=== PATIENT | female | born 1965 | race Hispanic/Latino ===

== ENCOUNTER 2019-03-04 23:11 | Emergency (ER) | payer MEDICARE, OTHER ==
[2019-03-05 00:24] LABS: Bilirubin,Urine NEG (Negative); Blood,Urine NEG (Negative); Color,Urine Straw (Yellow); Mucus,Urine FEW /HPF; Protein,Urine <15 mg/dL mg/dL (Negative); Urobilinogen,Urine < 2.0 mg/dL (<2.0)
--- NOTE | 2019-03-05 02:39 | Emergency Department Report ---
ED Female HPI - General Chief complaint: Back Pain/Injury Stated complaint: BACK PAIN Time Seen by Provider: 03/05/19 02:17 Source: patient, EMS Mode of arrival: Ambulatory Limitations: No Limitations - History of Present Illness Initial comments: Patient is a 53-year-old female who presents the emergency room with complaints of lower back pain that began a few days ago. She has associated urinary frequency and dysuria. She does not report any abdominal pain, diarrhea, fever, vaginal discharge, or any other complaints. She reports she has allergies to azithromycin, doxycycline, and sulfa. - Related Data Previous Rx's Medication Instructions Recorded Last Taken Type Nitrofurantoin [place]/M-Cryst 100 mg PO BID 5 Days #10 capsule 03/05/19 Unknown Rx [Macrobid CAP] Phenazopyridine [Pyridium] 100 mg PO TID PRN #14 tab 03/05/19 Unknown Rx Allergies Allergy/AdvReac Type Severity Reaction Status Date / Time azithromycin [From Zithromax] Allergy Hives Verified 03/04/19 23:34 doxycycline [From Vibramycin] Allergy Hives Verified 03/04/19 23:34 peanut Allergy Hives Verified 03/04/19 23:35 Sulfa (Sulfonamide Allergy Hives Verified 03/04/19 23:33 Antibiotics) ED Review of Systems ROS: Stated complaint: BACK PAIN Other details as noted in HPI Comment: All other systems reviewed and negative ED Past Medical Hx - Past Medical History Previous Medical History?: Yes Hx Hypertension: Yes Hx of Cancer: Yes (Bilateral Breast) Hx Psychiatric Treatment: Yes (Bipolar stays at [facility]) - Surgical History Past Surgical History?: Yes Hx Cholecystectomy: Yes Additional Surgical History: L4-L5 Laminectomy - Social History Smoking Status: Never Smoker Substance Use Type: None - Medications Home Medications: Home Medications Medication Instructions Recorded Confirmed Last Taken Type Nitrofurantoin [place]/M-Cryst 100 mg PO BID 5 Days #10 capsule 03/05/19 Unknown Rx [Macrobid CAP] Phenazopyridine [Pyridium] 100 mg PO TID PRN #14 tab 03/05/19 Unknown Rx ED Physical Exam - General Limitations: No Limitations General appearance: alert, in no apparent distress - Head Head exam: Present: atraumatic, normocephalic - Eye Eye exam: Present: normal appearance, PERRL - ENT ENT exam: Present: mucous membranes moist - Respiratory Respiratory exam: Present: normal lung sounds bilaterally. Absent: respiratory distress, wheezes, rales, rhonchi, stridor, chest wall tenderness, accessory muscle use, decreased breath sounds, prolonged expiratory - Cardiovascular Cardiovascular Exam: Present: regular rate, normal rhythm, normal heart sounds. Absent: systolic murmur, diastolic murmur, rubs, gallop - GI/Abdominal GI/Abdominal exam: Present: soft, normal bowel sounds. Absent: distended, tenderness, guarding, rebound, rigid - Back Exam Back exam: Absent: CVA tenderness (R), CVA tenderness (L) - Neurological Exam Neurological exam: Present: alert, oriented X3 - Skin Skin exam: Present: warm, dry, intact ED Course Vital Signs 03/04/19 03/05/19 23:51 02:58 Temperature 98.4 F 99.2 F Pulse Rate 100 H 94 H Respiratory 20 18 Rate Blood Pressure 136/87 Blood Pressure 127/83 [Right] O2 Sat by Pulse 97 97 Oximetry ED Medical Decision Making - Lab Data Lab Results 03/04/19 Range/Units 23:50 Urine Color Straw (Yellow) Urine Turbidity Clear (Clear) Urine pH 7.0 (5.0-7.0) Ur Specific [place] 1.004 (1.003-1.030) Urine Protein <15 mg/dl (Negative) mg/dL Urine Glucose (UA) Neg (Negative) mg/dL Urine Ketones Neg (Negative) mg/dL Urine Blood Neg (Negative) Urine Nitrite Neg (Negative) Urine Bilirubin Neg (Negative) Urine Urobilinogen < 2.0 (<2.0) mg/dL Ur Leukocyte Esterase Sm (Negative) Urine WBC (Auto) 7.0 H (0.0-6.0) /HPF Urine RBC (Auto) 1.0 (0.0-6.0) /HPF U Epithel Cells (Auto) < 1.0 (0-13.0) /HPF Urine Mucus Few /HPF Vital Signs 03/04/19 03/05/19 23:51 02:58 Temperature 98.4 F 99.2 F Pulse Rate 100 H 94 H Respiratory 20 18 Rate Blood Pressure 136/87 Blood Pressure 127/83 [Right] O2 Sat by Pulse 97 97 Oximetry - Medical Decision Making Patient is a 53-year-old female who presents the emergency room with complaints of lower back pain that began a few days ago. She has associated urinary frequency and dysuria. She does not report any abdominal pain, diarrhea, fever, vaginal discharge, or any other complaints. She reports she has allergies to azithromycin, doxycycline, and sulfa. on exam: no abd tenderness, no CVAT. VSS. UA with small amount of WBCs and small amount of leukocyte esterase. pt given macrobid and pyridium for a UTI. advised to please take medication as prescribed. Drink plenty of water. Follow up with primary care doctor in the next 2-3 days. Return to the emergency room for any new or worsening symptoms. Critical care attestation.: If time is entered above; I have spent that time in minutes in the direct care of this critically ill patient, excluding procedure time. ED Disposition Clinical Impression: UTI (urinary tract infection) Qualifiers: Urinary tract infection type: acute cystitis Hematuria presence: without hematuria Qualified Code(s): N30.00 - Acute cystitis without hematuria Back pain Qualifiers: Back pain location: low back pain Chronicity: acute Back pain laterality: unspecified Sciatica presence: unspecified whether sciatica present Qualified Code(s): M54.5 - Low back pain Disposition: - TO HOME OR SELFCARE Is pt being admited?: No Does the pt Need Aspirin: No Condition: Stable Instructions: Urinary Tract Infection in Women (ED) Additional Instructions: Please take medication as prescribed. Drink plenty of water. Follow up with primary care doctor in the next 2-3 days. Return to the emergency room for any new or worsening symptoms. Prescriptions: Nitrofurantoin [place]/M-Cryst [Macrobid CAP] 100 mg PO BID 5 Days #10 capsule Phenazopyridine [Pyridium] 100 mg PO TID PRN #14 tab PRN Reason: pain Referrals: [facility] [Outside] - 2-3 Days [facility] [Provider Group] - 2-3 Days [facility] [Outside] - 2-3 Days Time of Disposition: 02:37 Print Language: KAZAKH
[2019-03-05 02:59] VITALS: BP 127/83
== END 2019-03-05 02:59 | disposition home or self-care (01) ==
LOC: ED 23:11
DX: N30.00 Acute cystitis without hematuria (principal); I10 Essential (primary) hypertension; F31.9 Bipolar disorder, unspecified; Z90.49 Acquired absence of other specified parts of digestive tract; Z88.2 Allergy status to sulfonamides; Z91.010 Allergy to peanuts; Z88.1 Allergy status to other antibiotic agents
CPT/HCPCS: 81001; 87086

== ENCOUNTER 2019-03-05 17:46 | Emergency (ER) | payer MEDICARE ==
--- NOTE | 2019-03-05 17:51 | Emergency Department Report ---
ED Psych HPI - General Stated Complaint: BIPOLAR EPISODE Time Seen by Provider: 03/05/19 17:48 Source: patient, EMS Mode of arrival: Ambulatory Limitations: No Limitations - History of Present Illness Initial Comments: Chief complaint:" I'm having psych issues." Mrs. Domínguez is a 53-year-old female with history of bipolar affective disorder who presents to the ER with low blood sugar and "manic attack". She was seen last night for UTI symptoms. Today she called 911 from [employer]. She wanted assistance for her aura and low blood sugar. She was given juice per EMS. Her blood sugar was normal according to the paramedics. She denies homicidal or suicidal ideation. She appears anxious and hyperverbal. MD Complaint: other (feels anxious, feels manic) -: Gradual, days(s) (several days) Associated Psychiatric Symptoms: racing thoughts History of same: Yes Quality: constant Improves With: none Worsens With: none Context: significant life stressor Associated Symptoms: denies other symptoms Treatments Prior to Arrival: none - Related Data Previous Rx's Medication Instructions Recorded Last Taken Type Nitrofurantoin [place]/M-Cryst 100 mg PO BID 5 Days #10 capsule 03/05/19 Unknown Rx [Macrobid CAP] Phenazopyridine [Pyridium] 100 mg PO TID PRN #14 tab 03/05/19 Unknown Rx Allergies Allergy/AdvReac Type Severity Reaction Status Date / Time azithromycin [From Zithromax] Allergy Hives Verified 03/04/19 23:34 doxycycline [From Vibramycin] Allergy Hives Verified 03/04/19 23:34 peanut Allergy Hives Verified 03/04/19 23:35 Sulfa (Sulfonamide Allergy Hives Verified 03/04/19 23:33 Antibiotics) ED Review of Systems ROS: Stated complaint: BIPOLAR EPISODE Other details as noted in HPI Comment: All other systems reviewed and negative Constitutional: denies: fever, malaise Respiratory: denies: cough Cardiovascular: denies: as per HPI Psychiatric: anxiety. denies: auditory hallucinations, visual hallucinations, homicidal thoughts, suicidal thoughts ED Past Medical Hx - Past Medical History Previous Medical History?: Yes Hx Hypertension: Yes Hx Psychiatric Treatment: Yes (Bipolar stays at [facility]) - Surgical History Hx Cholecystectomy: Yes Additional Surgical History: L4-L5 Laminectomy - Social History Smoking Status: Never Smoker Substance Use Type: None - Medications Home Medications: Home Medications Medication Instructions Recorded Confirmed Last Taken Type Nitrofurantoin [place]/M-Cryst 100 mg PO BID 5 Days #10 capsule 03/05/19 03/05/19 Unknown Rx [Macrobid CAP] Phenazopyridine [Pyridium] 100 mg PO TID PRN #14 tab 03/05/19 03/05/19 Unknown Rx ED Physical Exam - General General appearance: alert, in no apparent distress - Head Head exam: Present: atraumatic, normocephalic - Eye Eye exam: Present: normal appearance - ENT ENT exam: Present: mucous membranes moist - Neck Neck exam: Present: normal inspection, full ROM - Respiratory Respiratory exam: Present: normal lung sounds bilaterally. Absent: respiratory distress, wheezes, rales, rhonchi - Cardiovascular Cardiovascular Exam: Present: regular rate, normal rhythm, normal heart sounds. Absent: systolic murmur, diastolic murmur, rubs, gallop - GI/Abdominal GI/Abdominal exam: Present: soft, normal bowel sounds. Absent: distended, tenderness, guarding, rebound - Extremities Exam Extremities exam: Present: normal inspection - Back Exam Back exam: Present: normal inspection - Neurological Exam Neurological exam: Present: alert, oriented X3 - Psychiatric Psychiatric exam: Present: flat affect. Absent: suicidal ideation - Skin Skin exam: Present: warm, dry, intact, normal color. Absent: rash ED Course Vital Signs 03/05/19 03/05/19 03/05/19 18:28 18:41 18:50 Temperature 98.4 F 98.9 F Pulse Rate 104 H 104 H Respiratory 18 18 18 Rate Blood Pressure 129/78 Blood Pressure 129/78 [Left] O2 Sat by Pulse 97 97 Oximetry ED Medical Decision Making - Lab Data Result diagrams: 03/05/19 18:00 03/05/19 18:00 - Medical Decision Making Mrs. Domínguez presents to the ER for psychiatric evaluation. She is medically clear for psychiatric care. No indication for involuntary hold or inpatient transfer at this time. Awaiting recommendation by psychiatric team. Critical care attestation.: If time is entered above; I have spent that time in minutes in the direct care of this critically ill patient, excluding procedure time. ED Disposition Clinical Impression: Aura, Bipolar disorder Disposition: DC-01 TO HOME OR SELFCARE Is pt being admited?: No Does the pt Need Aspirin: No Condition: Stable Instructions: Bipolar Disorder (ED)
[2019-03-05 18:24] LABS: Basophils % (Auto) 0.4 % (0.0-1.8); Eosinophils % (Auto) 0.4 % (0.0-4.3); Hematocrit 35.1 % (30.3-42.9); Lymphocytes # (Auto) 1.6 K/mm3 (1.2-5.4); Mean Corpuscular HGB Conc 34 % (30-34); Mean Corpuscular Volume 89 fl (79-97); Monocytes # (Auto) 0.8 K/mm3 (0.0-0.8); Monocytes % (Auto) 7.1 % (0.0-7.3); Platelet Count 529 K/mm3 (140-440); Red Blood Count 3.94 M/mm3 (3.65-5.03); Red Cell Distribution Width 13.6 % (13.2-15.2)
[2019-03-05 18:43] LABS: Alanine Aminotransferase 72 units/L (7-56); Albumin 4.2 g/dL (3.9-5); BUN/Creatinine Ratio 13; Blood Urea Nitrogen 9 mg/dL (7-17); Calcium 9.6 mg/dL (8.4-10.2); Hemolysis Index 4
[2019-03-05 18:48] LABS: Bacteria,Urine 2+ /HPF (Negative); Bilirubin,Urine NEG (Negative); Blood,Urine MOD (Negative); Color,Urine Yellow (Yellow); Mucus,Urine FEW /HPF; Protein,Urine <15 mg/dL mg/dL (Negative); Urobilinogen,Urine < 2.0 mg/dL (<2.0); WBC,Urine > 182.0 /HPF (0.0-6.0)
[2019-03-05] MEDS ORDERED: ATIVAN PO ONE (19:04)
[2019-03-05] MEDS ORDERED: ATIVAN ONE (19:09)
[2019-03-05 19:41] LABS: Amphetamine Screen,Urine PRESUMPTIVE NEGATIVE; Benzodiazepines Screen,Urine PRESUMPTIVE NEGATIVE; Cannabinoid Screen,Urine PRESUMPTIVE NEGATIVE; Cocaine Screen,Urine PRESUMPTIVE NEGATIVE; Methadone Screen,Urine PRESUMPTIVE NEGATIVE; Opiate Screen,Urine PRESUMPTIVE NEGATIVE
[2019-03-05] MEDS ORDERED: GEODON IM ONE (19:44)
[2019-03-06] MEDS ORDERED: TYLENOL PO ONE (10:31)
[2019-03-06] MEDS ORDERED: ATIVAN PO ONE (10:43)
--- NOTE | 2019-03-06 12:19 | Consultation ---
History of Present Illness - Reason for Consult Consult date: 03/06/19 Reason for consult: Mental Health Evaluation Requesting physician: JENNIFER MACKEY - Chief Complaint Chief complaint: "I need my medications' Medications and Allergies Allergies Allergy/AdvReac Type Severity Reaction Status Date / Time azithromycin [From Zithromax] Allergy Hives Verified 03/04/19 23:34 doxycycline [From Vibramycin] Allergy Hives Verified 03/04/19 23:34 peanut Allergy Hives Verified 03/04/19 23:35 Sulfa (Sulfonamide Allergy Hives Verified 03/04/19 23:33 Antibiotics) Home Medications Medication Instructions Recorded Confirmed Last Taken Type Nitrofurantoin [place]/M-Cryst 100 mg PO BID 5 Days #10 capsule 03/05/19 03/05/19 Unknown Rx [Macrobid CAP] Phenazopyridine [Pyridium] 100 mg PO TID PRN #14 tab 03/05/19 03/05/19 Unknown Rx Mental Status Exam - Vital signs Last Vital Signs Temp 98.3 F 03/06/19 08:02 Pulse 93 H 03/06/19 08:02 Resp 20 03/06/19 08:02 BP 123/77 03/06/19 08:02 Pulse Ox 98 03/06/19 08:02 Results Result Diagrams: 03/05/19 18:00 03/05/19 18:00 Abnormal lab results 03/05/19 03/05/19 03/05/19 Range/Units 18:00 18:00 18:00 WBC 11.8 H (4.5-11.0) K/mm3 Plt Count 529 H (140-440) K/mm3 Seg Neutrophils % 78.1 H (40.0-70.0) % Seg Neutrophils # 9.2 H (1.8-7.7) K/mm3 Sodium 132 L (137-145) mmol/L Chloride 94.6 L (98-107) mmol/L Carbon Dioxide 21 L (22-30) mmol/L Glucose 143 H (65-100) mg/dL POC Glucose (70-105) AST 55 H (5-40) units/L ALT 72 H (7-56) units/L Alkaline Phosphatase 301 H (35-129) units/L Urine WBC (Auto) (0.0-6.0) /HPF U Epithel Cells (Auto) (0-13.0) /HPF Salicylates < 0.3 L (2.8-20.0) mg/dL Acetaminophen (10.0-30.0) ug/mL 03/05/19 03/05/19 03/05/19 Range/Units 18:00 18:18 Unknown WBC (4.5-11.0) K/mm3 Plt Count (140-440) K/mm3 Seg Neutrophils % (40.0-70.0) % Seg Neutrophils # (1.8-7.7) K/mm3 Sodium (137-145) mmol/L Chloride (98-107) mmol/L Carbon Dioxide (22-30) mmol/L Glucose (65-100) mg/dL POC Glucose 127 H (70-105) AST (5-40) units/L ALT (7-56) units/L Alkaline Phosphatase (35-129) units/L Urine WBC (Auto) > 182.0 H (0.0-6.0) /HPF U Epithel Cells (Auto) 16.0 H (0-13.0) /HPF Salicylates (2.8-20.0) mg/dL Acetaminophen < 5.0 L (10.0-30.0) ug/mL All other labs normal.
--- NOTE | 2019-03-06 12:30 | Consultation ---
History of Present Illness - Reason for Consult Consult date: 03/06/19 Reason for consult: Mental Health Evaluation Requesting physician: JENNIFER MACKEY - Chief Complaint Chief complaint: "I need medication: - History of Present Psychiatric Illness 53 y.o. white female who presented to the ER for zeyad. Today the patient was labile during during the assessment. She had to be redirected throughout the interview to keep her on topic. She's tangent and hyper verbal. She was able to tell me the provider that she was recently discharged from a local mental health facility. She stated that she haven't taken her psy medication since being discharged from the psy facility. She appears to be paranoid, because she was observed pacing in her assigned room. She denies SI/HI's and AVH's. She denies a poor appetite and erratic sleep. She denies recreational drug use and alcohol consumption (etoh). Medications and Allergies Allergies Allergy/AdvReac Type Severity Reaction Status Date / Time azithromycin [From Zithromax] Allergy Hives Verified 03/04/19 23:34 doxycycline [From Vibramycin] Allergy Hives Verified 03/04/19 23:34 peanut Allergy Hives Verified 03/04/19 23:35 Sulfa (Sulfonamide Allergy Hives Verified 03/04/19 23:33 Antibiotics) Home Medications Medication Instructions Recorded Confirmed Last Taken Type Nitrofurantoin [place]/M-Cryst 100 mg PO BID 5 Days #10 capsule 03/05/19 03/05/19 U nknown Rx [Macrobid CAP] Phenazopyridine [Pyridium] 100 mg PO TID PRN #14 tab 03/05/19 03/05/19 Unknown Rx Past psychiatric history - Past Medical History Past Medical History: other (UTI) Past Surgical History: No surgical history - past Psychiatric treatment and history psychiatric treatment history: Inpatient recently for mental health. Unable to obtain a [facility] psy hx. - Social History Social history: other (Reside at [facility]) Mental Status Exam - Vital signs Last Vital Signs Temp 98.3 F 03/06/19 08:02 Pulse 93 H 03/06/19 08:02 Resp 20 03/06/19 08:02 BP 123/77 03/06/19 08:02 Pulse Ox 98 03/06/19 08:02 - Exam Narrative exam: MSE: Appearance: in hospital attire Behavior: regular eye contact Speech: hyper verbal Mood: labile Affect: congruent to mood Thought Process:somewhat disorganized Thought Content: denies SI/HI's and AVH's, paranoid Motor Activity: ambulatory Cognition: A/O x3 Insight: poor Judgment: poor Results Result Diagrams: 03/05/19 18:00 03/05/19 18:00 Abnormal lab results 03/05/19 03/05/19 03/05/19 Range/Units 18:00 18:00 18:00 WBC 11.8 H (4.5-11.0) K/mm3 Plt Count 529 H (140-440) K/mm3 Seg Neutrophils % 78.1 H (40.0-70.0) % Seg Neutrophils # 9.2 H (1.8-7.7) K/mm3 Sodium 132 L (137-145) mmol/L Chloride 94.6 L (98-107) mmol/L Carbon Dioxide 21 L (22-30) mmol/L Glucose 143 H (65-100) mg/dL POC Glucose (70-105) AST 55 H (5-40) units/L ALT 72 H (7-56) units/L Alkaline Phosphatase 301 H (35-129) units/L Urine WBC (Auto) (0.0-6.0) /HPF U Epithel Cells (Auto) (0-13.0) /HPF Salicylates < 0.3 L (2.8-20.0) mg/dL Acetaminophen (10.0-30.0) ug/mL 03/05/19 03/05/19 03/05/19 Range/Units 18:00 18:18 Unknown WBC (4.5-11.0) K/mm3 Plt Count (140-440) K/mm3 Seg Neutrophils % (40.0-70.0) % Seg Neutrophils # (1.8-7.7) K/mm3 Sodium (137-145) mmol/L Chloride (98-107) mmol/L Carbon Dioxide (22-30) mmol/L Glucose (65-100) mg/dL POC Glucose 127 H (70-105) AST (5-40) units/L ALT (7-56) units/L Alkaline Phosphatase (35-129) units/L Urine WBC (Auto) > 182.0 H (0.0-6.0) /HPF U Epithel Cells (Auto) 16.0 H (0-13.0) /HPF Salicylates (2.8-20.0) mg/dL Acetaminophen < 5.0 L (10.0-30.0) ug/mL All other labs normal. Assessment and Plan Assessment and plan: Impression: Unspecified Mood DO with psy features. The patient is manic. Today the patent was labile during the assessment. Liver enzymes elevated. DDx: Bipolar DO Recommendation/Plan: Continue 1013 and start Zprexa 5 mg PO HS for mood/psychosis. Attempted to discuss possible metabolic side effects of Zyprexa with the patent. Dispo: The patient was referred top inpatient psy services. Will staff with Dr. Belyks Paz.
[2019-03-06] MEDS ORDERED: LEVAQUIN PO SCH (13:00)
[2019-03-06 16:31] VITALS: BP 110/77
== END 2019-03-06 17:10 | disposition home or self-care (01) ==
LOC: EEVIPCON 17:46 → ED 17:46
DX: F39 Unspecified mood [affective] disorder (principal); F31.9 Bipolar disorder, unspecified; I10 Essential (primary) hypertension; Z90.49 Acquired absence of other specified parts of digestive tract; Z88.1 Allergy status to other antibiotic agents; Z88.2 Allergy status to sulfonamides; Z91.010 Allergy to peanuts
CPT/HCPCS: 36415; 80053; 80178; 80307; 80320; 81001; 82962; 84443; 84703; 85025; 99285; G0480

== ENCOUNTER 2019-03-06 13:30 | Inpatient (IN) | payer MEDICARE ==
[2019-03-06] MEDS: ATIVAN PO SCH (21:26)
[2019-03-06] MEDS: LaMICtal PO SCH (21:27)
[2019-03-06] MEDS: RESTORIL PO SCH (21:27)
[2019-03-06] MEDS: NEURONTIN PO SCH (21:27)
[2019-03-07] MEDS: ATIVAN PO SCH (10:04)
[2019-03-07] MEDS: LaMICtal PO SCH ×2 (10:05→21:00)
[2019-03-07] MEDS: NEURONTIN PO SCH ×3 (10:06→21:01)
--- NOTE | 2019-03-07 10:51 | Consultation ---
History of Present Illness - Reason for Consult Consult date: 03/07/19 Medical Evaluation for Inpatient [facility] - History of Present Illness Patient is a 53 yo woman with a history of bipolar disorder who presented to [facility] ED on 03/04/19 and 03/05/2019 with various complaints. This history and physical is very difficult because she has psychosis. 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 She answers questions on tangent and hyperverbal. She is very difficult to re-directed. She is pacing and paranoid. She tells me she has breast cancer and touches her right breast, when asked about details, she speaks on a tangent and will not give specific answers. In the ED she was diagnosis with UTI but the urine culture was negative. She denies SI. PMH: as hpi, also mentions hyperglycemia, low back pains with herniated disc PSH: cholecystectomy, L4-L5 Laminectomy SH: denies tobacco/ETOH/illegal use FH: brother has bipolar ROS: Constitutional: denies: fever ENT: denies: throat or neck pain Respiratory: denies: cough, shortness of breath Cardiovascular: denies: chest pain Endocrine: denies unexplained weight loss or gain Gastrointestinal: denies: abdominal pain, nausea Genitourinary: denies: dysuria Rectal: denies no incontinence, no bleeding, no itching, no discharge Musculoskeletal: denies swelling, myaglia, muscle weakness Skin: denies: rash Neurological: denies: headache Hematological/Lymphatic: denies: easy bleeding or easy bruising Allergic/Immunologic: no urticaria, no allergic rhinitis, no anaphylaxis Psych: denies sadness or hopelessness, SI/HI +admits to zeyad and hearing voices Medications and Allergies Allergies Allergy/AdvReac Type Severity Reaction Status Date / Time azithromycin [From Zithromax] Allergy Hives Verified 03/04/19 23:34 doxycycline [From Vibramycin] Allergy Hives Verified 03/04/19 23:34 peanut Allergy Hives Verified 03/04/19 23:35 Sulfa (Sulfonamide Allergy Hives Verified 03/04/19 23:33 Antibiotics) Home Medications Medication Instructions Recorded Confirmed Last Taken Type Nitrofurantoin [place]/M-Cryst 100 mg PO BID 5 Days #10 capsule 03/05/19 03/06/19 Unknown Rx [Macrobid CAP] Phenazopyridine [Pyridium] 100 mg PO TID PRN #14 tab 03/05/19 03/06/19 Unknown Rx LORazepam 2 mg PO BID 03/06/19 03/06/19 Unknown History Lamictal 300 mg PO 03/06/19 Unknown History Neurontin 300 mg PO TID 03/06/19 03/06/19 Unknown History Percocet 10/325 mg 10 - 325 mg PO PRN 03/06/19 Unknown History Restoril 30 mg PO QHS 03/06/19 03/06/19 Unknown History ZyPREXA 20 mg PO QDAY 03/06/19 03/06/19 Unknown History levoFLOXacin [Levaquin TAB] 500 mg PO DAILY #7 tablet 03/06/19 03/06/19 Unknown Rx Active Meds: Active Medications Gabapentin (Neurontin) 300 mg PO TID [facility] Last Admin: 03/07/19 10:06 Dose: 300 mg Documented by: Lamotrigine (Lamictal) 25 mg PO BID [facility] Last Admin: 03/07/19 10:05 Dose: 25 mg Documented by: Lorazepam (Ativan) 2 mg PO BID [facility] Last Admin: 03/07/19 10:04 Dose: 2 mg Documented by: Olanzapine (Zyprexa) 20 mg PO QDAY [facility] Last Admin: 03/07/19 10:05 Dose: 20 mg Documented by: Temazepam (Restoril) 30 mg PO QHS [facility] Last Admin: 03/06/19 21:27 Dose: 30 mg Documented by: Exam - Physical Exam Narrative exam: Would not allow complete exam, she got up abruptly and started pacing the room and says she gets panic attack when someone touches her (I did ask permission per to touching her) Gen: WDWN, NAD, Awake, Alert, Orientated HEENT: NCAT, EOMI, PERRL, OP Clear Neck: supple, no adenopathy, no thyromegaly, no JVD CVS/Heart: RRR, normal S1S2, pulses present bilaterally Chest/Lungs: CTA B, Symmetrical chest expansion, good air entry bilaterally GI/Abdomen: soft, NTND, good bowel sounds, no guarding or rebound /Bladder: not allowed to exam Extermity/Skin: no c/c/e, no obvious rash MSK: FROM x 4 Neuro: CN 2-12 grossly intact, no focal deficits observed Psych: active psychosis - Constitutional Vitals: Temp Pulse Resp BP Pulse Ox 98.1 F 93 H 18 117/60 98 03/06/19 22:00 03/06/19 22:00 03/06/19 22:00 03/06/19 22:00 03/06/19 22:00 Assessment and Plan Patient is a 53 yo woman with a history of bipolar disorder who presented to [facility] ED on 03/04/19 and 03/05/2019 with various complaints. This history and physical is very difficult because she has psychosis. 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 She answers questions on tangent and hyperverbal. She is very difficult to re-directed. She is pacing and paranoid. She tells me she has breast cancer and touches her right breast, when asked about details, she speaks on a tangent and will not give specific answers. In the ED she was diagnosis with UTI but the urine culture was negative. She denies SI. Bipolar disorder with psychotic features: recommend Psych to manage UTI, with negative Urine culture on prior admission: get another urine culture if she allows, would only treat for 3 days Hyperglycemia: check A1c Hyponatremia: repeat bmp Leukocytosis on prior admission: repeat cbc
[2019-03-07 11:57] LABS: Hematocrit 33.8 % (30.3-42.9); Hemoglobin 11.9 gm/dl (10.1-14.3); Mean Corpuscular HGB Conc 35 % (30-34); Mean Corpuscular Volume 88 fl (79-97); Platelet Count 457 K/mm3 (140-440); Red Blood Count 3.84 M/mm3 (3.65-5.03); Red Cell Distribution Width 13.5 % (13.2-15.2)
--- NOTE | 2019-03-07 12:16 | History and Physical Report ---
GP History & Physical - History of Present Illness Date of admission: 03/06/19 Date of Examination: 03/07/19 Reason for Admission: Impaired reality testing, Failure of Outpatient Treatment, Psychopathology interference, Unable to care for self Chief Complaint: I don't feel safe History of Present Illness: The patient is a 53yo disabled female with history of Bipolar disorder. She presents with paranoia, racing thoughts, disorganized thoughts and inability to care for self. In my interview with the patient she reports feeling unsafe on the street because she feels that some people are trying to kill her. She endorses racing thoughts and inability to sleep for several days. She denies illicit drug use. Reports being compliant with her medications and denies side effects. 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) Review of Systems All systems: negative Psychiatric: insomnia, paranoia, difficulties concentrating, mood swings Results - Results Labs/Vitals: Laboratory Last Values WBC 8.9 K/mm3 (4.5-11.0) 03/07/19 11:38 RBC 3.84 M/mm3 (3.65-5.03) 03/07/19 11:38 Hgb 11.9 gm/dl (10.1-14.3) 03/07/19 11:38 Hct 33.8 % (30.3-42.9) 03/07/19 11:38 MCV 88 fl (79-97) 03/07/19 11:38 MCH 31 pg (28-32) 03/07/19 11:38 MCHC 35 % (30-34) H 03/07/19 11:38 RDW 13.5 % (13.2-15.2) 03/07/19 11:38 Plt Count 457 K/mm3 (140-440) H 03/07/19 11:38 Last Vital Signs Temp 98.1 F 03/06/19 22:00 Pulse 97 H 03/07/19 09:25 Resp 18 03/06/19 22:00 BP 135/76 03/07/19 09:25 Pulse Ox 98 03/07/19 09:25 Physical Examination - Constitutional Vitals: Vital Signs Temp Pulse Resp BP Pulse Ox 98.1 F 97 H 18 135/76 98 03/06/19 22:00 03/07/19 09:25 03/06/19 22:00 03/07/19 09:25 03/07/19 09:25 Temperature -Last 24 Hours Temperature 98.1 F Temperature 98.1 F Temperature 98.3 F General appearance: Present: well-nourished, disheveled - EENT Eyes: Present: PERRL, EOM intact ENT: hearing intact, clear oral mucosa - Neck Neck: Present: supple, normal ROM - Respiratory Respiratory effort: normal Mental Status Exam - Vital signs Last Vital Signs Temp 98.1 F 03/06/19 22:00 Pulse 97 H 03/07/19 09:25 Resp 03/06/19 22:00 BP 135/76 03/07/19 09:25 Pulse Ox 98 03/07/19 09:25 - Exam Orientation: time, place, person Affect: agitated Mood: euphoric Thought content: delusions, paranoia Thought Process: Disorganized Perceptions: none Speech: pressured Concentration: unable to pay attention Motor activity: restless, agitated Level of consciousness: alert Memory: Intact Sleep Symptoms: Insomnia Interaction: cooperative Mini mental status exam(if necessary): 24-30 Assessment and Plan - Psychiatric problem (1) Bipolar 1 disorder, mixed Current Visit: Yes Status: Acute plan to address problem: Patient will be admitted for inpatient psychiatric evaluation, medication adjustment and close monitoring The patient's behavior, mood, sleep and appetite will be closely monitored. Patient will be enrolled in individual and group therapeutic sessions and encouraged to attend. Patient will be provided with a safe and structured environment. Patient's physical health needs will be addressed by the Hospitalist. Social Assessment will be completed and the Jigmaker will work with patient and family to ensure a suitable and safe disposition Medication adjustment will be made as clinically indicated Increase Clonazepam to 2mg bid for mood stabilization The patient agreed on the treatment plan, understood the risk, benefit, alternative treatment, potential consequence of no treatment, and gave informed consent. Physician Certification - Certification Statement Physician Certification Statement: This is an acknowledgement statement that WILLIAM BLACK is a 53 year old F who requires inpatient psychiatric admission for treatment which could reasonably be expected to improve the patient's condition for Bipolar disorder Estimated period of time patient will need to remain in the hospital: 7 days Plan for post-hospital care: Out-patient care
[2019-03-07 12:26] LABS: Alanine Aminotransferase 47 units/L (7-56); Albumin 4.2 g/dL (3.9-5); BUN/Creatinine Ratio 13; Blood Urea Nitrogen 8 mg/dL (7-17); Hemolysis Index 2
[2019-03-07 15:02] LABS: Hepatitis B Surface Antigen Non-Reactive (Negative); Hepatitis C Virus Antibody Non-Reactive (NonReactive)
[2019-03-07] MEDS: PYRIDIUM PO SCH ×2 (16:54→21:00)
[2019-03-07] MEDS: LEVAQUIN PO SCH (16:55)
[2019-03-07] MEDS: BENADRYL PO SCH ×3 (16:55→20:59)
[2019-03-07] MEDS ORDERED: TYLENOL PO PRN (18:12)
[2019-03-07] MEDS: HALDOL IM PRN (18:31)
[2019-03-07] MEDS: ATIVAN IM PRN (18:31)
[2019-03-07] MEDS: RESTORIL PO SCH (21:00)
[2019-03-08] MEDS: HALDOL IM PRN (00:50)
[2019-03-08] MEDS: ATIVAN IM PRN (00:51)
[2019-03-08] MEDS: PYRIDIUM PO SCH ×3 (06:16→22:46)
[2019-03-08] MEDS: BENADRYL PO SCH ×4 (10:01→21:02)
[2019-03-08] MEDS: LEVAQUIN PO SCH (10:02)
[2019-03-08] MEDS: LaMICtal PO SCH ×2 (10:02→21:03)
[2019-03-08] MEDS: NEURONTIN PO SCH ×3 (10:02→21:03)
[2019-03-08 11:38] LABS: Chol/HDL Ratio 3.17 %
[2019-03-08] MEDS: IBUPROFEN PO PRN (11:49)
--- NOTE | 2019-03-08 19:01 | Progress Note ---
Subjective Date of service: 03/08/19 Principal diagnosis: Bipolar disorder, Mixed Subjective Comment: The patient is very hyperactive, paranoid, disorganized and unable to sleep. She is compliant with medications and denies side effects. Objective - Criteria for Continued Treatment Criteria for Continued Treatment: Improving Level of Functioning, Stablizing Level of Functioning, Improving Emotional/Socia - Mental Status Mental Status: Alert - Objective Observation Participation Level: Moderate Assessment and Plan - Patient Problems (1) Bipolar 1 disorder, mixed Current Visit: Yes Status: Acute Plan to address problem: Patient will be admitted for inpatient psychiatric evaluation, medication adjustment and close monitoring The patient's behavior, mood, sleep and appetite will be closely monitored. Patient will be enrolled in individual and group therapeutic sessions and encouraged to attend. Patient will be provided with a safe and structured environment. Patient's physical health needs will be addressed by the Hospitalist. Social Assessment will be completed and the Vascular Ultrasound Technician will work with patient and family to ensure a suitable and safe disposition Medication adjustment will be made as clinically indicated Continue Olanzapine 20mg qhs for psychosis and Clonazepam 2mg bid for mood stabilization Add Trazodone 50mg qhs and Melatonin 10mg qhs for sleep The patient agreed on the treatment plan, understood the risk, benefit, alternative treatment, potential consequence of no treatment, and gave informed consent.
[2019-03-08] MEDS: DESYREL PO SCH (21:02)
[2019-03-08] MEDS: PROTONIX PO SCH (21:02)
[2019-03-08] MEDS: RESTORIL PO SCH (21:04)
[2019-03-08] MEDS: MELATONIN PO SCH (22:46)
[2019-03-09] MEDS: IBUPROFEN PO PRN ×2 (03:32→16:47)
[2019-03-09] MEDS: PYRIDIUM PO SCH ×3 (05:37→23:24)
[2019-03-09] MEDS: NEURONTIN PO SCH ×3 (07:56→20:17)
[2019-03-09] MEDS: BENADRYL PO SCH ×4 (09:04→22:54)
[2019-03-09] MEDS: LaMICtal PO SCH ×2 (09:05→22:52)
[2019-03-09] MEDS: LEVAQUIN PO SCH (09:05)
[2019-03-09] MEDS: PROTONIX PO SCH ×2 (09:06→22:54)
[2019-03-09] MEDS: ATIVAN IM PRN ×2 (09:49→16:48)
[2019-03-09] MEDS: HALDOL IM PRN ×2 (09:49→16:48)
--- NOTE | 2019-03-09 13:34 | Progress Note ---
Subjective Date of service: 03/09/19 Principal diagnosis: Bipolar disorder, Mixed Subjective Comment: The patient is very hyperactive, paranoid, disorganized and unable to sleep. She is compliant with medications and denies side effects. Objective - Criteria for Continued Treatment Criteria for Continued Treatment: Improving Level of Functioning, Stablizing Level of Functioning, Improving Emotional/Socia - Mental Status Mental Status: Alert - Objective Observation Participation Level: Minimal Reason(s) For Not Participating: Behaviors Assessment and Plan - Patient Problems (1) Bipolar 1 disorder, mixed Current Visit: Yes Status: Acute Plan to address problem: Patient will be admitted for inpatient psychiatric evaluation, medication adjustment and close monitoring The patient's behavior, mood, sleep and appetite will be closely monitored. Patient will be enrolled in individual and group therapeutic sessions and encouraged to attend. Patient will be provided with a safe and structured environment. Patient's physical health needs will be addressed by the Hospitalist. Social Assessment will be completed and the Drupal Web Developer will work with patient and family to ensure a suitable and safe disposition Medication adjustment will be made as clinically indicated Continue Olanzapine 20mg qhs for psychosis and Clonazepam 2mg bid for mood stabilization Continue Trazodone 50mg qhs and Melatonin 10mg qhs for sleep Increase Lamictal to 50mg bid for mood stabilization The patient agreed on the treatment plan, understood the risk, benefit, alternative treatment, potential consequence of no treatment, and gave informed consent.
[2019-03-09] MEDS: MELATONIN PO SCH (22:51)
[2019-03-09] MEDS: RESTORIL PO SCH (22:53)
[2019-03-09] MEDS: DESYREL PO SCH (22:54)
[2019-03-10] MEDS: PYRIDIUM PO SCH ×3 (05:50→21:02)
[2019-03-10] MEDS: NEURONTIN PO SCH ×3 (08:59→21:02)
[2019-03-10] MEDS: BENADRYL PO SCH ×4 (09:01→21:02)
[2019-03-10] MEDS: LaMICtal PO SCH ×2 (09:02→21:01)
[2019-03-10] MEDS: IBUPROFEN PO PRN (09:02)
[2019-03-10] MEDS: PROTONIX PO SCH ×2 (09:04→21:02)
--- NOTE | 2019-03-10 16:28 | Progress Note ---
Subjective Date of service: 03/10/19 Principal diagnosis: Bipolar disorder, Mixed Subjective Comment: The patient is very hyperactive, intrusive, disruptive, paranoid and disorganized. She showers and changes into different clothes multiple times - 5 times within 30mins to 60mins; blocks the toilet with bulky tissues and clothes; and requires prn meds for severe agitation. She is compliant with medications and denies side effects. Objective - Criteria for Continued Treatment Criteria for Continued Treatment: Improving Level of Functioning, Stablizing Level of Functioning, Improving Emotional/Socia - Mental Status Mental Status: Alert - Objective Observation Participation Level: Minimal Reason(s) For Not Participating: Behaviors Assessment and Plan - Patient Problems (1) Bipolar 1 disorder, mixed Current Visit: Yes Status: Acute Plan to address problem: Patient will be admitted for inpatient psychiatric evaluation, medication adjustment and close monitoring The patient's behavior, mood, sleep and appetite will be closely monitored. Patient will be enrolled in individual and group therapeutic sessions and encouraged to attend. Patient will be provided with a safe and structured environment. Patient's physical health needs will be addressed by the Hospitalist. Social Assessment will be completed and the Recreation Center Director will work with patient and family to ensure a suitable and safe disposition Medication adjustment will be made as clinically indicated Continue Olanzapine 20mg qhs for psychosis and Clonazepam 2mg bid for mood stabilization Continue Trazodone 50mg qhs and Melatonin 10mg qhs for sleep Continue Lamictal 50mg bid for mood stabilization The patient agreed on the treatment plan, understood the risk, benefit, alternative treatment, potential consequence of no treatment, and gave informed consent.
[2019-03-10] MEDS: RESTORIL PO SCH (21:01)
[2019-03-10] MEDS: MELATONIN PO SCH (21:02)
[2019-03-11] MEDS: DESYREL PO SCH ×2 (04:40→21:30)
[2019-03-11] MEDS: IBUPROFEN PO PRN ×2 (05:16→21:32)
[2019-03-11] MEDS: PYRIDIUM PO SCH ×3 (07:33→21:32)
--- NOTE | 2019-03-11 09:26 | Progress Note ---
Subjective Date of service: 03/11/19 Principal diagnosis: Bipolar disorder, Mixed Subjective Comment: The patient's sleep is fragmented; she is talkative, hyperactive, intrusive, disruptive, paranoid and disorganized. No agitation last She is now on shower schedule as she was showering multiple times yesterday. She continues to attempt to stuff the toilet bulky tissues and clothes. She complains of being constipated this morning and requests for Colace and Senakot. She is compliant with medications and denies side effects. She denies SI/HI Objective - Criteria for Continued Treatment Criteria for Continued Treatment: Improving Level of Functioning, Stablizing Level of Functioning, Improving Emotional/Socia - Mental Status Mental Status: Alert - Objective Observation Participation Level: Moderate Assessment and Plan - Patient Problems (1) Bipolar 1 disorder, mixed Current Visit: Yes Status: Acute Plan to address problem: Patient will be admitted for inpatient psychiatric evaluation, medication adjustment and close monitoring The patient's behavior, mood, sleep and appetite will be closely monitored. Patient will be enrolled in individual and group therapeutic sessions and encouraged to attend. Patient will be provided with a safe and structured environment. Patient's physical health needs will be addressed by the Hospitalist. Social Assessment will be completed and the Bellstand Attendant will work with patient and family to ensure a suitable and safe disposition Medication adjustment will be made as clinically indicated Continue Olanzapine 20mg qhs for psychosis and Clonazepam 2mg bid for mood stabilization Continue Trazodone 50mg qhs and Melatonin 10mg qhs for sleep Continue Lamictal 50mg bid for mood stabilization The patient agreed on the treatment plan, understood the risk, benefit, alternative treatment, potential consequence of no treatment, and gave informed consent.
[2019-03-11] MEDS: BENADRYL PO SCH ×5 (10:06→21:30)
[2019-03-11] MEDS: LaMICtal PO SCH ×2 (10:07→21:31)
[2019-03-11] MEDS: NEURONTIN PO SCH ×3 (10:07→19:47)
[2019-03-11] MEDS: PROTONIX PO SCH ×2 (10:07→21:31)
[2019-03-11] MEDS: MELATONIN PO SCH (21:31)
[2019-03-11] MEDS: RESTORIL PO SCH (21:32)
[2019-03-12] MEDS: IBUPROFEN PO PRN ×2 (03:11→23:48)
[2019-03-12] MEDS: PYRIDIUM PO SCH ×3 (05:26→22:18)
[2019-03-12] MEDS: PROTONIX PO SCH ×2 (09:08→22:18)
[2019-03-12] MEDS: LaMICtal PO SCH ×2 (09:08→22:18)
[2019-03-12] MEDS: NEURONTIN PO SCH ×3 (09:09→20:28)
[2019-03-12] MEDS: BENADRYL PO SCH ×4 (09:09→22:17)
[2019-03-12] MEDS: HALDOL IM PRN (13:37)
[2019-03-12] MEDS: ATIVAN IM PRN (13:37)
--- NOTE | 2019-03-12 18:39 | Progress Note ---
Subjective Date of service: 03/12/19 Principal diagnosis: Bipolar disorder, Mixed Subjective Comment: The patient is talkative, hyperactive, intrusive, disruptive, paranoid and disorganized. Attempts to fight other patient for a recliner chair. She is compliant with medications and denies side effects. She denies SI/HI Objective - Criteria for Continued Treatment Criteria for Continued Treatment: Improving Level of Functioning, Stablizing Level of Functioning, Improving Emotional/Socia - Mental Status Mental Status: Alert - Objective Observation Participation Level: Minimal Assessment and Plan - Patient Problems (1) Bipolar 1 disorder, mixed Current Visit: Yes Status: Acute Plan to address problem: Patient will be admitted for inpatient psychiatric evaluation, medication adjustment and close monitoring The patient's behavior, mood, sleep and appetite will be closely monitored. Patient will be enrolled in individual and group therapeutic sessions and encouraged to attend. Patient will be provided with a safe and structured environment. Patient's physical health needs will be addressed by the Hospitalist. Social Assessment will be completed and the Jukebox Route Driver will work with patient and family to ensure a suitable and safe disposition Medication adjustment will be made as clinically indicated Continue Olanzapine 20mg qhs for psychosis and Clonazepam 2mg bid for mood stabilization Continue Trazodone 50mg qhs and Melatonin 10mg qhs for sleep Continue Lamictal 50mg bid for mood stabilization The patient agreed on the treatment plan, understood the risk, benefit, alternative treatment, potential consequence of no treatment, and gave informed consent.
[2019-03-12] MEDS: DESYREL PO SCH (22:17)
[2019-03-12] MEDS: MELATONIN PO SCH (22:18)
[2019-03-12] MEDS: RESTORIL PO SCH (22:19)
[2019-03-13] MEDS: PYRIDIUM PO SCH ×3 (05:45→21:16)
[2019-03-13] MEDS: NEURONTIN PO SCH ×3 (08:05→20:14)
[2019-03-13] MEDS: BENADRYL PO SCH ×4 (09:41→21:15)
[2019-03-13] MEDS: LaMICtal PO SCH ×2 (09:42→21:15)
[2019-03-13] MEDS: PROTONIX PO SCH ×2 (09:42→21:16)
--- NOTE | 2019-03-13 09:52 | Progress Note ---
Subjective Date of service: 03/13/19 Principal diagnosis: Bipolar disorder, Mixed Subjective Comment: The patient is still manic, slept only 2 hours last night, reportedly fell in the bathroom last night, no bruising noticed, pacing, talkative, hyperactive, intrusive, disruptive, paranoid and disorganized. Gabapentin was increased to 600mg tid from 300mg tid yesterday to help with neuropathic pain and mood. She is compliant with medications and denies side effects. She denies SI/HI Objective - Criteria for Continued Treatment Criteria for Continued Treatment: Improving Level of Functioning, Stablizing Level of Functioning, Improving Emotional/Socia - Mental Status Mental Status: Alert - Objective Observation Participation Level: Minimal Reason(s) For Not Participating: Behaviors Assessment and Plan - Patient Problems (1) Bipolar 1 disorder, mixed Current Visit: Yes Status: Acute Plan to address problem: Patient will be admitted for inpatient psychiatric evaluation, medication a djustment and close monitoring The patient's behavior, mood, sleep and appetite will be closely monitored. Patient will be enrolled in individual and group therapeutic sessions and encouraged to attend. Patient will be provided with a safe and structured environment. Patient's physical health needs will be addressed by the Hospitalist. Social Assessment will be completed and the Truck Driver Helper will work with patient and family to ensure a suitable and safe disposition Medication adjustment will be made as clinically indicated Continue Olanzapine 20mg qhs for psychosis Decrease Clonazepam to 1mg tid for mood stabilization Discontinue Trazodone per patient's request, continue Melatonin 10mg qhs for sleep Continue Lamictal 50mg bid for mood stabilization. Last increased on 03/09 Continue Gabapentin 600mg tid for pain and mood The patient agreed on the treatment plan, understood the risk, benefit, alternative treatment, potential consequence of no treatment, and gave informed consent.
[2019-03-13] MEDS ORDERED: SENOKOT PO PRN (10:07)
[2019-03-13] MEDS: MELATONIN PO SCH (21:15)
[2019-03-13] MEDS: RESTORIL PO SCH (21:16)
[2019-03-14] MEDS: IBUPROFEN PO PRN ×3 (01:31→22:55)
[2019-03-14] MEDS: PYRIDIUM PO SCH ×3 (05:33→22:13)
[2019-03-14] MEDS: NEURONTIN PO SCH ×3 (07:29→22:12)
[2019-03-14] MEDS: LaMICtal PO SCH ×3 (09:00→22:12)
[2019-03-14] MEDS: BENADRYL PO SCH ×4 (09:00→22:12)
[2019-03-14] MEDS: PROTONIX PO SCH ×2 (09:01→22:13)
--- NOTE | 2019-03-14 09:55 | Progress Note ---
Subjective Date of service: 03/14/19 Principal diagnosis: Bipolar disorder, Mixed Subjective Comment: The requests to be discharged by or Wednesday but she is still manic, has tangential thought process, paces, talkative, loud, hyperactive, intrusive, disruptive and paranoid. and disorganized. She denies SI/HI/AVH. She is compliant with medications and denies side effects. Objective - Criteria for Continued Treatment Criteria for Continued Treatment: Improving Level of Functioning, Confronting Denial of Illness, Stablizing Level of Functioning, Decreasing Frequency of Hospitalization - Mental Status Mental Status: Alert - Objective Observation Participation Level: Moderate Assessment and Plan - Patient Problems (1) Bipolar 1 disorder, mixed Current Visit: Yes Status: Acute Plan to address problem: Patient will be admitted for inpatient psychiatric evaluation, medication adjustment and close monitoring The patient's behavior, mood, sleep and appetite will be closely monitored. Patient will be enrolled in individual and group therapeutic sessions and encouraged to attend. Patient will be provided with a safe and structured environment. Patient's physical health needs will be addressed by the Hospitalist. Social Assessment will be completed and the Video Intern will work with patient and family to ensure a suitable and safe disposition Medication adjustment will be made as clinically indicated Continue Olanzapine 20mg qhs for psychosis Decrease Clonazepam to 1mg tid for mood stabilization Discontinue Trazodone per patient's request, continue Melatonin 10mg qhs for sleep Will increase Lamictal to 75mg bid for mood stabilization. Continue Gabapentin 600mg tid for pain and mood Hopefully patient would be safe for discharge by /Wednesday The patient agreed on the treatment plan, understood the risk, benefit, alternative treatment, potential consequence of no treatment, and gave informed consent.
[2019-03-14] MEDS: CHLORASEPTIC MM PRN (12:04)
[2019-03-14] MEDS: MELATONIN PO SCH (22:13)
[2019-03-14] MEDS: RESTORIL PO SCH (22:13)
[2019-03-14] MEDS: MILK OF MAGNESIA PO PRN (22:20)
[2019-03-15] MEDS: IBUPROFEN PO PRN ×3 (06:18→22:04)
[2019-03-15] MEDS: PYRIDIUM PO SCH ×3 (06:19→21:36)
[2019-03-15] MEDS: PROTONIX PO SCH ×2 (09:30→21:37)
[2019-03-15] MEDS: NEURONTIN PO SCH ×3 (09:30→21:37)
[2019-03-15] MEDS: LaMICtal PO SCH ×2 (09:31→21:38)
[2019-03-15] MEDS: CHLORASEPTIC MM PRN (09:33)
[2019-03-15] MEDS: BENADRYL PO SCH ×4 (14:14→21:38)
--- NOTE | 2019-03-15 15:05 | Progress Note ---
Subjective Date of service: 03/15/19 Principal diagnosis: Bipolar disorder, Mixed Subjective Comment: The patient is argumentative, demanding but calmer and better organized. She is believed to be at her baseline going by reports of previous contacts. She denies SI/HI/AVH. She is compliant with medications and denies side effects. Objective - Criteria for Continued Treatment Criteria for Continued Treatment: Improving Level of Functioning, Stablizing Level of Functioning, Improving Emotional/Socia - Mental Status Mental Status: Alert - Objective Observation Participation Level: Moderate Assessment and Plan - Patient Problems (1) Bipolar 1 disorder, mixed Current Visit: Yes Status: Acute Plan to address problem: Patient will be admitted for inpatient psychiatric evaluation, medication adjustment and close monitoring The patient's behavior, mood, sleep and appetite will be closely monitored. Patient will be enrolled in individual and group therapeutic sessions and encouraged to attend. Patient will be provided with a safe and structured environment. Patient's physical health needs will be addressed by the Hospitalist. Social Assessment will be completed and the Revenue Collector will work with pat ient and family to ensure a suitable and safe disposition Medication adjustment will be made as clinically indicated Continue Olanzapine 20mg/day: 5mg bid and 10mg qhs for psychosis Decrease Clonazepam to 0.5mg tid for mood stabilization Continue Melatonin 10mg qhs for sleep Will continue Lamictal 75mg bid for mood stabilization. Continue Gabapentin 600mg tid for pain and mood The patient agreed on the treatment plan, understood the risk, benefit, alternative treatment, potential consequence of no treatment, and gave informed consent.
[2019-03-15] MEDS: MELATONIN PO SCH (21:36)
[2019-03-15] MEDS: RESTORIL PO SCH (21:37)
[2019-03-16] MEDS: HALDOL IM PRN (00:57)
[2019-03-16] MEDS: NEURONTIN PO SCH ×3 (09:24→20:49)
[2019-03-16] MEDS: PROTONIX PO SCH ×2 (09:24→21:17)
[2019-03-16] MEDS: BENADRYL PO SCH ×4 (09:25→21:17)
[2019-03-16] MEDS: PYRIDIUM PO SCH ×3 (09:39→21:19)
[2019-03-16] MEDS: IBUPROFEN PO PRN ×2 (09:39→22:26)
[2019-03-16] MEDS: LaMICtal PO SCH ×2 (12:36→21:19)
[2019-03-16] MEDS: RESTORIL PO SCH (21:17)
[2019-03-16] MEDS: MELATONIN PO SCH (21:18)
--- NOTE | 2019-03-16 21:41 | Progress Note ---
Subjective Date of service: 03/16/19 Principal diagnosis: Bipolar disorder, Mixed Subjective Comment: The patient's hygiene is improved, she is dressed in clean casual clothes, calm and organized. Still argumentative but believed to be at her baseline going by reports of previous contacts. She denies SI/HI/AVH. She is compliant with medications and denies side effects. Objective - Criteria for Continued Treatment Criteria for Continued Treatment: Improving Level of Functioning, Stablizing Level of Functioning, Improving Emotional/Socia, Decreasing Frequency of Hospitalization - Mental Status Mental Status: Alert - Objective Observation Participation Level: Moderate Assessment and Plan - Patient Problems (1) Bipolar 1 disorder, mixed Current Visit: Yes Status: Acute Plan to address problem: Patient will be admitted for inpatient psychiatric evaluation, medication adjustment and close monitoring The patient's behavior, mood, sleep and appetite will be closely monitored. Patient will be enrolled in individual and group therapeutic sessions and encouraged to attend. Patient will be provided with a safe and structured environment. Patient's physical health needs will be addressed by the Hospitalist. Social Assessment will be completed and the Truck Rental Clerk will work with patient and family to ensure a suitable and safe disposition Medication adjustment will be made as clinically indicated Continue Olanzapine 5mg bid and 10mg qhs for psychosis Continue Clonazepam 0.5mg tid for mood stabilization Continue Melatonin 10mg qhs for sleep Will continue Lamictal 75mg bid for mood stabilization. Continue Gabapentin 600mg tid for pain and mood Discharge in am tomorrow if she continues to do well The patient agreed on the treatment plan, understood the risk, benefit, alternative treatment, potential consequence of no treatment, and gave informed consent.
[2019-03-16] MEDS: CHLORASEPTIC MM PRN (22:26)
[2019-03-16] MEDS: ATIVAN IM PRN (22:26)
[2019-03-17] MEDS: PYRIDIUM PO SCH ×3 (06:12→21:53)
[2019-03-17] MEDS: IBUPROFEN PO PRN (10:54)
[2019-03-17] MEDS: NEURONTIN PO SCH ×3 (10:54→19:13)
[2019-03-17] MEDS: PROTONIX PO SCH ×2 (10:55→21:53)
[2019-03-17] MEDS: LaMICtal PO SCH ×2 (10:55→21:53)
[2019-03-17] MEDS: BENADRYL PO SCH ×4 (11:08→21:52)
--- NOTE | 2019-03-17 14:28 | Progress Note ---
Subjective Date of service: 03/17/19 Principal diagnosis: Bipolar disorder, Mixed Subjective Comment: The patient agreed to continue as a voluntary patient. She is still emotionally dysregulated and disorganized. She has no accommodation at this time. She is demanding and still argumentative. She complains of neck muscle spams and requests for flexeril and Robaxin be re-started. She also asks for Hydrocorthisone cream which has used in the past for rashes. She denies SI/HI/AVH. She is compliant with medications and denies side effects. Objective - Criteria for Continued Treatment Criteria for Continued Treatment: Improving Level of Functioning, Stablizing Level of Functioning, Improving Emotional/Socia, Decreasing Frequency of Hospitalization - Mental Status Mental Status: Alert - Objective Observation Participation Level: Moderate Assessment and Plan - Patient Problems (1) Bipolar 1 disorder, mixed Current Visit: Yes Status: Acute Plan to address problem: Patient will be admitted for inpatient psychiatric evaluation, medication adjustment and close monitoring The patient's behavior, mood, sleep and appetite will be closely monitored. Patient will be enrolled in individual and group therapeutic sessions and encouraged to attend. Patient will be provided with a safe and structured environment. Patient's physical health needs will be addressed by the Hospitalist. Social Assessment will be completed and the Local Area Network Administrator will work with patient and family to ensure a suitable and safe disposition Medication adjustment will be made as clinically indicated Continue Olanzapine 5mg bid and 10mg qhs for psychosis Continue Clonazepam 0.5mg tid for mood stabilization Continue Melatonin 10mg qhs for sleep Will continue Lamictal 75mg bid for mood stabilization. Continue Gabapentin 600mg tid for pain and mood Re-start Robaxin and Hydrocorthisone cream per patient's request The patient agreed on the treatment plan, understood the risk, benefit, alternative treatment, potential consequence of no treatment, and gave informed consent.
[2019-03-17] MEDS: ROBAXIN PO SCH (16:15)
[2019-03-17] MEDS: RESTORIL PO SCH (21:53)
[2019-03-17] MEDS: MELATONIN PO SCH (21:53)
[2019-03-17] MEDS: CHLORASEPTIC MM PRN (23:20)
[2019-03-18] MEDS: ROBAXIN PO SCH ×3 (00:34→17:00)
[2019-03-18] MEDS: PYRIDIUM PO SCH ×3 (05:50→21:38)
[2019-03-18] MEDS: PROTONIX PO SCH ×2 (09:29→21:39)
[2019-03-18] MEDS: BENADRYL PO SCH ×3 (09:30→18:10)
[2019-03-18] MEDS: NEURONTIN PO SCH ×3 (09:30→21:36)
[2019-03-18] MEDS: HYDROCORTISONE CR TP PRN (09:43)
[2019-03-18] MEDS: IBUPROFEN PO PRN (15:12)
--- NOTE | 2019-03-18 20:44 | Progress Note ---
Subjective Date of service: 03/18/19 Principal diagnosis: Bipolar disorder, Mixed Subjective Comment: Lamictal was discontinued this morning as patient is breaking out in rash. Unclear if the rash is drug induced but risk of Jairon-Dion's Syndrome outweighs benefits. Patient continues to be emotionally dysregulated and disorganized. She has no accommodation at this time. She is demanding and still argumentative. She denies SI/HI/AVH. She is compliant with medications and denies side effects. Objective - Criteria for Continued Treatment Criteria for Continued Treatment: Improving Level of Functioning, Stablizing Level of Functioning, Improving Emotional/Socia, Decreasing Frequency of Hospitalization - Mental Status Mental Status: Alert - Objective Observation Participation Level: Moderate Assessment and Plan - Patient Problems (1) Bipolar 1 disorder, mixed Current Visit: Yes Status: Acute Plan to address problem: Patient will be admitted for inpatient psychiatric evaluation, medication adjustment and close monitoring The patient's behavior, mood, sleep and appetite will be closely monitored. Patient will be enrolled in individual and group therapeutic sessions and encouraged to attend. Patient will be provided with a safe and structured environment. Patient's physical health needs will be addressed by the Hospitalist. Social Assessment will be completed and the Automatic Blocker will work with patient and family to ensure a suitable and safe disposition Medication adjustment will be made as clinically indicated Continue Olanzapine 5mg bid and 10mg qhs for psychosis Continue Clonazepam 0.5mg tid for mood stabilization Continue Melatonin 10mg qhs for sleep Continue Gabapentin 600mg tid for pain and mood Continue Robaxin and Hydrocorthisone cream per patient's request The patient agreed on the treatment plan, understood the risk, benefit, alternative treatment, potential consequence of no treatment, and gave informed consent.
[2019-03-18] MEDS: MELATONIN PO SCH (21:38)
[2019-03-18] MEDS: RESTORIL PO SCH (21:39)
[2019-03-19] MEDS: ROBAXIN PO SCH ×4 (00:05→16:03)
[2019-03-19] MEDS: PYRIDIUM PO SCH ×3 (06:29→22:37)
[2019-03-19] MEDS: NEURONTIN PO SCH ×3 (09:44→22:37)
[2019-03-19] MEDS: PROTONIX PO SCH ×2 (09:44→22:37)
--- NOTE | 2019-03-19 10:14 | Progress Note ---
Subjective Date of service: 03/19/19 Principal diagnosis: Bipolar disorder, Mixed Subjective Comment: Patient is improving. She is calmer and less argumentative. She denies SI/HI/AVH. She is compliant with medications and denies side effects. Objective - Criteria for Continued Treatment Criteria for Continued Treatment: Improving Level of Functioning, Stablizing Level of Functioning, Improving Emotional/Socia, Decreasing Frequency of Hospitalization - Mental Status Mental Status: Alert - Objective Observation Participation Level: Moderate Assessment and Plan - Patient Problems (1) Bipolar 1 disorder, mixed Current Visit: Yes Status: Acute Plan to address problem: Patient will be admitted for inpatient psychiatric evaluation, medication adjustment and close monitoring The patient's behavior, mood, sleep and appetite will be closely monitored. Patient will be enrolled in individual and group therapeutic sessions and encouraged to attend. Patient will be provided with a safe and structured environment. Patient's physical health needs will be addressed by the Hospitalist. Social Assessment will be completed and the Supervisor Cabinetmaker will work with patient and family to ensure a suitable and safe disposition Medication adjustment will be made as clinically indicated Continue Olanzapine 5mg bid and 10mg qhs for psychosis Continue Clonazepam 0.5mg tid for mood stabilization Continue Melatonin 10mg qhs for sleep Continue Gabapentin 600mg tid for pain and mood Continue Robaxin and Hydrocorthisone cream per patient's request The patient agreed on the treatment plan, understood the risk, benefit, alternative treatment, potential consequence of no treatment, and gave informed consent.
[2019-03-19] MEDS: IBUPROFEN PO PRN (16:00)
[2019-03-19] MEDS: HYDROCORTISONE CR TP PRN (22:37)
[2019-03-19] MEDS: MELATONIN PO SCH (22:38)
[2019-03-19] MEDS: RESTORIL PO SCH (22:41)
[2019-03-20] MEDS: ROBAXIN PO SCH ×5 (00:08→22:20)
[2019-03-20] MEDS: PYRIDIUM PO SCH ×3 (07:44→22:20)
[2019-03-20] MEDS: NEURONTIN PO SCH ×3 (08:07→20:08)
[2019-03-20] MEDS: PROTONIX PO SCH ×2 (11:35→22:20)
--- NOTE | 2019-03-20 20:13 | Progress Note ---
Subjective Date of service: 03/20/19 Principal diagnosis: Bipolar disorder, Mixed Subjective Comment: Patient continues to improve. She is more agreeable, calmer and less argumentative. She denies SI/HI/AVH. She is compliant with medications and denies side effects. She will be discharged in am tomorrow if she continues to do well Objective - Criteria for Continued Treatment Criteria for Continued Treatment: Improving Level of Functioning, Stablizing Level of Functioning, Improving Emotional/Socia, Decreasing Frequency of Hospitalization - Mental Status Mental Status: Alert - Objective Observation Participation Level: Full Assessment and Plan - Patient Problems (1) Bipolar 1 disorder, mixed Current Visit: Yes Status: Acute Plan to address problem: Patient will be admitted for inpatient psychiatric evaluation, medication adjustment and close monitoring The patient's behavior, mood, sleep and appetite will be closely monitored. Patient will be enrolled in individual and group therapeutic sessions and encouraged to attend. Patient will be provided with a safe and structured environment. Patient's physical health needs will be addressed by the Hospitalist. Social Assessment will be completed and the Typewriter Tester will work with patient and family to ensure a suitable and safe disposition Medication adjustment will be made as clinically indicated Continue Olanzapine 5mg bid and 10mg qhs for psychosis Continue Clonazepam 0.5mg tid for mood stabilization Continue Melatonin 10mg qhs for sleep Continue Gabapentin 600mg tid for pain and mood Continue Robaxin and Hydrocorthisone cream per patient's request The patient agreed on the treatment plan, understood the risk, benefit, alternative treatment, potential consequence of no treatment, and gave informed consent.
[2019-03-20] MEDS: MELATONIN PO SCH (22:19)
[2019-03-20] MEDS: RESTORIL PO SCH (22:20)
[2019-03-20] MEDS: MILK OF MAGNESIA PO PRN (22:24)
[2019-03-21] MEDS: ROBAXIN PO SCH ×4 (05:43→22:16)
[2019-03-21] MEDS: PYRIDIUM PO SCH ×3 (05:43→22:16)
[2019-03-21] MEDS: NEURONTIN PO SCH ×3 (07:07→19:48)
[2019-03-21] MEDS: HYDROCORTISONE CR TP PRN ×3 (07:52→22:19)
--- NOTE | 2019-03-21 08:08 | Discharge Summary ---
Providers - Providers Date of Admission: 03/06/19 16:05 Date of discharge: 03/21/19 Attending physician: BARBARA LOPEZ MD 03/06/19 16:05 Consult to Physician [CONS] Routine Comment: Consulting Provider: SHEREE TO Physician Instructions: Reason For Exam: HISTORY & PHYSICAL/ MEDICAL MANAGEMENT 03/08/19 12:47 Consult to Dietitian/Nutrition [CONS] Routine Physician Instructions: Reason For Exam: Patient is requesting extra food around the clock Reason for Consult: Diet education [facility] Reason for admission: paranoia, racing & disorganized thoughts and inability to care for self Condition: Good Hospital course: The patient was provided inpatient psychiatric treatment with safe and supportive environment, group therapy, individual counseling, psychiatric medication, medication adjustment, adverse effect monitor, medical evaluation, medical treatment, social service assessment, family/social support meeting, placement assessment and psycho-education. The patients mood, anxiety, thoughts, stress management skill, cognition, impulse/anger control, motivation, understanding of disease, compliance to treatment and appreciation on family/social support are improved and stabilized. At the time of discharge, the patient had no suicidal ideas, no homicidal ideas, no aggressive thoughts, no endangering behavior and no debilitating adverse effects. The patient agreed on the treatment plan, understood the risk, benefit, alternative treatment, potential consequence of no treatment, and gave informed consent. The patient was advised to be compliant with medications, not to use drugs and not to drink alcohol. The patient understands that if suicidal ideas, homicidal ideas, or any endangering thoughts arise, the patient should immediately seek for emergent assistance including but not limited to crisis hot line and emerg ency room. Follow up with out-patient Psychiatrist and PCP within 14 - 21 days of discharge. Disposition: - TO HOME OR SELFCARE Time spent for discharge: 38 mins Allergies/Adverse Reactions: Allergies azithromycin [From Zithromax] Allergy (Verified 03/04/19 23:34) Hives doxycycline [From Vibramycin] Allergy (Verified 03/04/19 23:34) Hives peanut Allergy (Verified 03/04/19 23:35) Hives Sulfa (Sulfonamide Antibiotics) Allergy (Verified 03/04/19 23:33) Hives Vital Signs: Last Vital Signs Temp 98.0 F 03/20/19 19:35 Pulse 100 H 03/20/19 19:35 Resp 18 03/20/19 19:35 BP 114/69 03/20/19 19:35 Pulse Ox 97 03/20/19 19:35 Last Lab: Laboratory Last Values WBC 8.9 K/mm3 (4.5-11.0) 03/07/19 11:38 RBC 3.84 M/mm3 (3.65-5.03) 03/07/19 11:38 Hgb 11.9 gm/dl (10.1-14.3) 03/07/19 11:38 Hct 33.8 % (30.3-42.9) 03/07/19 11:38 MCV 88 fl (79-97) 03/07/19 11:38 MCH 31 pg (28-32) 03/07/19 11:38 MCHC 35 % (30-34) H 03/07/19 11:38 RDW 13.5 % (13.2-15.2) 03/07/19 11:38 Plt Count 457 K/mm3 (140-440) H 03/07/19 11:38 Sodium 134 mmol/L (137-145) L 03/07/19 11:38 Potassium 4.2 mmol/L (3.6-5.0) 03/07/19 11:38 Chloride 97.4 mmol/L (98-107) L 03/07/19 11:38 Carbon Dioxide 23 mmol/L (22-30) 03/07/19 11:38 18 mmol/L 03/07/19 11:38 BUN 8 mg/dL (7-17) 03/07/19 11:38 0.6 mg/dL (0.7-1.2) L 03/07/19 11:38 Estimated GFR > 60 ml/min 03/07/19 11:38 13 % 03/07/19 11:38 Glucose 101 mg/dL (65-100) H 03/07/19 11:38 POC Glucose 234 (70-105) H 03/14/19 11:46 5.5 % (4-6) 03/08/19 10:30 Calcium 9.0 mg/dL (8.4-10.2) 03/07/19 11:38 0.20 mg/dL (0.1-1.2) 03/07/19 11:38 AST 30 units/L (5-40) 03/07/19 11:38 ALT 47 units/L (7-56) 03/07/19 11:38 235 units/L (35-129) H 03/07/19 11:38 7.3 g/dL (6.3-8.2) 03/07/19 11:38 4.2 g/dL (3.9-5) 03/07/19 11:38 1.4 % 03/07/19 11:38 Triglycerides 125 mg/dL (2-149) 03/08/19 10:30 Cholesterol 181 mg/dL (50-199) 03/08/19 10:30 110 mg/dL (50-130) 03/08/19 10:30 57 mg/dL (40-59) 03/08/19 10:30 3.17 % 03/08/19 10:30 Hepatitis A IgM Ab Non-reactive (NonReactive) 03/07/19 11:38 Hep Bs Antigen Non-reactive (Negative) 03/07/19 11:38 Hep B Core IgM Ab Non-reactive (NonReactive) 03/07/19 11:38 Non-reactive (NonReactive) 03/07/19 11:38 - Discharge Diagnoses (1) Bipolar 1 disorder, mixed Status: Acute Core Measure Documentation - Palliative Care Palliative Care/ Comfort Measures: Not Applicable - Core Measures Any of the following diagnoses?: none Exam - Constitutional Vitals: Temp Pulse Resp BP Pulse Ox 98.0 F 100 H 18 114/69 97 03/20/19 19:35 03/20/19 19:35 03/20/19 19:35 03/20/19 19:35 03/20/19 19:35 General appearance: Present: no acute distress, well-nourished - EENT Eyes: Present: PERRL, EOM intact ENT: hearing intact, clear oral mucosa - Neck Neck: Present: supple, normal ROM - Respiratory Respiratory effort: normal Plan Activity: no driving until cleared by PCP Weight Bearing Status: Full Weight Bearing Follow up with: MISAEL RUFFIN MD [Primary Care Provider] - 7 Days Prescriptions: clonazePAM [KlonoPIN] 0.5 mg PO BID #60 tablet Gabapentin [Neurontin] 600 mg PO TID #120 capsule Pantoprazole [Protonix TAB] 40 mg PO BID #30 tablet methOCARBAMOL [Robaxin TAB] 500 mg PO Q6H #60 tablet OLANzapine [Zyprexa] 10 mg PO HS #30 tablet OLANzapine [ZyPREXA] 5 mg PO BIDBL #60 tablet
[2019-03-21 10:40] VITALS: BP 126/81
[2019-03-21] MEDS: PROTONIX PO SCH ×2 (10:56→22:15)
[2019-03-21] MEDS: MELATONIN PO SCH (22:15)
[2019-03-21] MEDS: RESTORIL PO SCH (22:16)
[2019-03-21] MEDS: MILK OF MAGNESIA PO PRN (23:20)
[2019-03-22] MEDS: ROBAXIN PO SCH ×2 (04:28→10:33)
[2019-03-22] MEDS: IBUPROFEN PO PRN (04:28)
[2019-03-22] MEDS: PYRIDIUM PO SCH ×2 (05:31→13:34)
[2019-03-22] MEDS: HYDROCORTISONE CR TP PRN (05:31)
[2019-03-22] MEDS: NEURONTIN PO SCH ×2 (10:07→13:34)
[2019-03-22] MEDS: PROTONIX PO SCH (10:07)
== END 2019-03-22 16:35 | disposition home or self-care (01) | DRG 885 ==
LOC: 3A 13:30 → UNDOADMIN 13:30 → 5A 16:05
PROVIDERS: ADMIT Psychiatry & Neurology Psychiatry; ATTEND Psychiatry & Neurology Psychiatry
DX: F31.60 Bipolar disorder, current episode mixed, unspecified (principal); N39.0 Urinary tract infection, site not specified; E87.1 Hypo-osmolality and hyponatremia; R73.9 Hyperglycemia, unspecified; D72.829 Elevated white blood cell count, unspecified; Z90.49 Acquired absence of other specified parts of digestive tract; Z86.59 Personal history of other mental and behavioral disorders; Z88.1 Allergy status to other antibiotic agents; Z88.2 Allergy status to sulfonamides; Z91.010 Allergy to peanuts
CPT/HCPCS: 36415; 80053; 80061; 80074; 80178; 80307; 80320; 81001; 82962; 83036; 84443; 84703; 85025; 85027; 87086; 99285; G0378; A6250; G0480; J1630; J2060